=== PATIENT | female | born 1995 | race Caucasian/White ===

== ENCOUNTER 2019-12-08 15:12 | Observation (INO) | payer BC ==
[2019-12-08 15:47] VITALS: BP 113/60; PULSE 68
--- NOTE | 2019-12-08 17:01 | XRAY ---
Indication: well-being. Decreased heart tones. Two-dimensional OB ultrasound performed. Comparison: None. There is a single viable intrauterine in cephalic presentation. Normal four-chamber heart with heart rate 135 BPM. Anterior placenta without abruption/previa. BPD measures 7.66 cm corresponding to 30 weeks 5 days. HC measures 29.52 cm corresponding to 32 weeks 4 days. AC measures 27.37 cm corresponding to 31 weeks 3 days. FL measures 6.16 cm corresponding to 32 weeks 0 days. RAMON is 12.4 cm. Impression: Single viable intrauterine with mean gestational age 31 weeks 5 days. Expected date confinement is February 04, 2020.
== END 2019-12-08 16:35 | disposition home or self-care (01) ==
LOC: OB 15:12
PROVIDERS: ADMIT Family Medicine; ATTEND Family Medicine
DX: Z34.83 Encounter for supervision of other normal pregnancy, third trimester (principal)
CPT/HCPCS: 59025; 76816; G0378

== ENCOUNTER 2020-01-08 10:45 | Observation (INO) | payer BC ==
[2020-01-08 11:20] VITALS: BP 109/59; PULSE 72
--- NOTE | 2020-01-08 11:59 | XRAY ---
Indication: Abdomen pain. Two-dimensional OB ultrasound performed. Comparison: December 08, 2019. There is again a single viable intrauterine in cephalic presentation. heart rate 121 BPM. Again anterior placenta without abruption/previa. BPD measures 8.65 cm corresponding to 34 weeks 6 days. HC measures 31.57 cm corresponding to 35 weeks 3 days. AC measures 31.31 cm corresponding to 35 weeks 2 days. FL measures 6.83 cm corresponding to 35 weeks 1 day. RAMON is 11 cm. Impression: Again single viable intrauterine with mean gestational age 35 weeks 1 day. Normal progression of . No new/acute findings.
== END 2020-01-08 11:57 | disposition home or self-care (01) ==
LOC: OB 10:45
PROVIDERS: ADMIT Family Medicine; ATTEND Family Medicine
DX: O26.893 Other specified pregnancy related conditions, third trimester (principal); Z3A.35 35 weeks gestation of pregnancy; R10.9 Unspecified abdominal pain
CPT/HCPCS: 59025; 76816; G0378

== ENCOUNTER 2020-01-17 12:27 | Observation (INO) | payer BC ==
[2020-01-17 13:01] VITALS: BP 99/56; PULSE 75
== END 2020-01-17 13:20 | disposition home or self-care (01) ==
LOC: OB 12:27
PROVIDERS: ADMIT Family Medicine; ATTEND Family Medicine
DX: O36.8330 Maternal care for abnormalities of the fetal heart rate or rhythm, third trimester, not applicable or unspecified (principal); Z3A.36 36 weeks gestation of pregnancy
CPT/HCPCS: 59025; G0378

== ENCOUNTER 2020-01-31 12:45 | Observation (INO) | payer BC ==
[2020-01-31 14:01] VITALS: O2SAT 99
[2020-01-31 15:20] VITALS: BP 107/57; PULSE 67
--- NOTE | 2020-01-31 21:52 | XRAY ---
Exam: OB biophysical profile without nonstress from 01/31/2020. Comparison: None. Findings: A single live intrauterine fetus is seen in the cephalic lie. heart rate measured 121 bpm. Amniotic fluid index measured 12.04 cm, previously 11 cm on 01/08/2020. biophysical profile score was 2 points out of 2 points for breathing movements, gross body movements, tone, and amniotic fluid volume for a total of 8 points out of a maximum of 8 points. Impression: 1. Biophysical profile is 8 points out of a maximum of 8 points.
== END 2020-01-31 14:35 | disposition home or self-care (01) ==
LOC: OB 12:45
PROVIDERS: ADMIT Family Medicine; ATTEND Family Medicine
DX: Z34.83 Encounter for supervision of other normal pregnancy, third trimester (principal); Z3A.38 38 weeks gestation of pregnancy
CPT/HCPCS: 59025; 76819; G0378

== ENCOUNTER 2020-02-07 22:57 | Inpatient (IN) | payer BC ==
[2020-02-08] MEDS ORDERED: BRETHINE 1 MG/ML SQ PRN (00:37)
[2020-02-08] MEDS ORDERED: Zofran 4 MG/2 ML VIAL IV PRN (00:41)
[2020-02-08] MEDS ORDERED: XYLOCAINE 1% HCL 20 ML MDV IJ PRN (00:41)
[2020-02-08] MEDS ORDERED: PITOCIN 30 UNITS/ LR 500 ML 30 UNITS/500 ML IV.SOLN. IV SCH (01:00)
[2020-02-08 01:16] LABS: Amphetamine,Urine NEGATIVE (NEGATIVE); Barbiturate,Urine NEGATIVE (NEGATIVE); Benzodiazepine,Urine NEGATIVE (NEGATIVE); Cocaine,Urine NEGATIVE (NEGATIVE); Methadone,Urine NEGATIVE (NEGATIVE); Opiate,Urine NEGATIVE (NEGATIVE); PCP,Urine NEGATIVE (NEGATIVE); THC,Urine NEGATIVE (NEGATIVE)
[2020-02-08 01:25] LABS: Absolute Neutrophil Ct (ANC) 5.25 (1.4-6.9); BASOPHIL % 0.2 % (0.0-0.4); Basophil (Absolute #) 0.02 (0-0.4); Eosinophil % 1.2 % (0.00-5.0); Hematocrit 31.4 % (35-47); Hemoglobin 9.9 gm/dl (12.0-16.0); Lymphocyte (Absolute #) 2.42 (1.0-4.6); Lymphocytes % 28.9 % (24.0-44.0); Mean Cell Volume 81.1 fl (78-100); Mean Corpuscular Hemoglobin 25.6 pg (26-32); Mean Corpuscular Hgb Concent. 31.5 g/dl (32-36); Mean Platelet Volume 12.4 fl (7.5-11.0); Monocyte (Absolute #) 0.58 (0.0-1.3); Monocytes % 6.9 % (0.0-12.0); Neutrophil % 62.8 % (36.0-66.0); Platelet Count 179 K/mm3 (150-450); Red Blood Count 3.87 M/mm3 (4.1-5.4); Red Cell Distribution Width 15.1 % (11.5-14.0); White Blood Count 8.4 K/mm3 (4.0-10.5)
[2020-02-08 02:16] LABS: Appearance CLEAR (CLEAR); Bilirubin NEGATIVE (NEGATIVE); Blood NEGATIVE Ery/ul (0-5); Epithelial Cells RARE /HPF (FEW); Glucose 150 mg/dL (NEGATIVE); Ketones NEGATIVE (NEGATIVE); Leukocyte Esterase NEGATIVE (NEGATIVE); Mucus SLIGHT /HPF (NEGATIVE); Nitrite NEGATIVE (NEGATIVE); Protein,Urine Dip NEGATIVE (Negative); Specific Gravity 1.016 (1.005-1.025); Urobilinogen NEGATIVE mg/dL (0-1)
[2020-02-08 02:22] LABS: ABO TYPING B; Antibody Screen NEGATIVE (NEGATIVE); RH TYPING POSITIVE
[2020-02-08] MEDS: Lactated Ringers 1,000 ML IV SCH ×2 (14:20→23:20)
[2020-02-08] MEDS ORDERED: OB EPIDURAL NAROPIN/SUFENTANIL IN NACL EPIDURAL PRN (18:39)
[2020-02-08] MEDS ORDERED: Lactated Ringers 1,000 ML IV ONE (18:39)
[2020-02-08] MEDS ORDERED: Ephedrine Sulfate 50 MG/ML IV PRN (18:39)
[2020-02-08] MEDS ORDERED: XYLOCAINE 2%/Epi 1:200000 20ML VIAL MPF ONE (21:10)
[2020-02-08] MEDS ORDERED: Cervidil 10 MG VAG SCH (22:00)
[2020-02-09] MEDS ORDERED: SOD CITRATE-CITRIC ACID SOLN PO ONE (01:29)
[2020-02-09] MEDS ORDERED: Lactated Ringers 1,000 ML IV ONE (01:29)
[2020-02-09] MEDS ORDERED: Pepcid 20 MG VIAL IV SCH (01:30)
[2020-02-09] MEDS ORDERED: Reglan 10 MG/2 ML IV SCH (01:30)
[2020-02-09] MEDS ORDERED: CEFAZOLIN 2 GM-D5W BAG** 2 GM/50 ML ML IV ONE (01:44)
[2020-02-09] MEDS ORDERED: CEFAZOLIN 2 GM-D5W BAG** 2 GM/50 ML ML IV SCH (02:00)
[2020-02-09 02:15] LABS: INR 1.06 (0.8-3.0)
[2020-02-09 02:17] LABS: PTT 20.3 SECONDS (25.3-37.0)
[2020-02-09] MEDS ORDERED: Astramorph-Pf 5 MG/10 ML ONE (02:38)
[2020-02-09] MEDS ORDERED: TRANEXAMIC ACID 1000 MG/10 ML ONE (02:50)
[2020-02-09] MEDS ORDERED: Sodium Chloride 0.9% 100 ML IVPB 100 ML IV ONE (02:50)
[2020-02-09] MEDS ORDERED: Pitocin 10 UNITS/ML ONE (03:05)
[2020-02-09] MEDS ORDERED: Zofran 4 MG/2 ML VIAL ONE (03:05)
[2020-02-09] MEDS ORDERED: TORAdol 30 mg Injection ONE (03:54)
[2020-02-09] MEDS ORDERED: Anucort-HC SUPPOSITORY PR PRN (04:46)
[2020-02-09] MEDS ORDERED: NORCO 5/325 MG PO PRN (04:46)
[2020-02-09] MEDS ORDERED: CORTISONE 1% CREAM TP PRN (04:46)
[2020-02-09] MEDS ORDERED: DEMEROL 50 MG IV PRN (04:46)
[2020-02-09] MEDS ORDERED: Dulcolax 10 MG SUPP PR PRN (04:46)
[2020-02-09] MEDS ORDERED: Mylicon 80MG PO PRN (04:46)
[2020-02-09] MEDS ORDERED: TUCKS TP PRN (04:46)
[2020-02-09] MEDS ORDERED: Ambien 10 MG PO PRN (04:46)
[2020-02-09] MEDS ORDERED: Phenergan 25 MG INJ IM PRN (04:46)
[2020-02-09] MEDS ORDERED: Dextrose 5%-Lr IV Solution 1000 ML 1,000 ML IV SCH (05:00)
[2020-02-09 05:05] LABS: Appearance SLIGHTLY CLOUDY (CLEAR); Bilirubin NEGATIVE (NEGATIVE); Blood LARGE Ery/ul (0-5); Glucose NEGATIVE (NEGATIVE); Ketones SMALL (NEGATIVE); Leukocyte Esterase NEGATIVE (NEGATIVE); Mucus SLIGHT /HPF (NEGATIVE); Nitrite NEGATIVE (NEGATIVE); Protein,Urine Dip 30 (Negative); Specific Gravity 1.019 (1.005-1.025); Urobilinogen 2 mg/dL (0-1)
[2020-02-09 05:23] LABS: RBC >101 /HPF (0-2)
[2020-02-09] MEDS: FERREX 150 PO SCH (11:17)
[2020-02-09] MEDS: CEFAZOLIN 2 GM-D5W BAG** 2 GM/50 ML ML IV SCH ×2 (11:17→18:56)
[2020-02-09] MEDS: Colace 100 MG PO SCH ×2 (11:17→21:16)
[2020-02-09 12:00] LABS: Absolute Neutrophil Ct (ANC) 15.72 (1.4-6.9); BASOPHIL % 0.1 % (0.0-0.4); Basophil (Absolute #) 0.01 (0-0.4); Eosinophil (Absolute #) 0 (0-0.5); Hematocrit 29.4 % (35-47); Hemoglobin 9.2 gm/dl (12.0-16.0); Lymphocytes % 4.6 % (24.0-44.0); Mean Cell Volume 81.4 fl (78-100); Mean Corpuscular Hemoglobin 25.5 pg (26-32); Mean Corpuscular Hgb Concent. 31.3 g/dl (32-36); Mean Platelet Volume 12.5 fl (7.5-11.0); Monocytes % 4.1 % (0.0-12.0); Neutrophil % 91.2 % (36.0-66.0); Platelet Count 155 K/mm3 (150-450); Red Blood Count 3.61 M/mm3 (4.1-5.4); Red Cell Distribution Width 15.2 % (11.5-14.0); White Blood Count 17.2 K/mm3 (4.0-10.5)
[2020-02-09 13:46] LABS: ALKALINE PHOSPHATASE 97 U/L (38-126); ANION GAP 10.3 MEQ/L (5-15); BLOOD UREA NITROGEN 6 mg/dL (7-17); CHLORIDE 108 mmol/L (98-107); Calcium 8.9 mg/dL (8.4-10.2); Carbon Dioxide 18 mmol/L (22-30); Creatinine 1 0.69 mg/dL (0.52-1.04); EST GLOMERULAR FILTRATION RATE > 60.0 ML/MIN; Glucose 166 mg/dL (74-106); Potassium 4.1 mmol/L (3.5-5.1); SGOT/AST 22 U/L (14-36); SGPT/ALT 10 U/L (0-35); SODIUM 132 mmol/L (137-145); Total Protein 5.9 g/dL (6.3-8.2)
[2020-02-09] MEDS: MOTRIN 400 MG PO PRN ×2 (15:17→21:16)
[2020-02-09] MEDS ORDERED: CLARITIN 10 MG PO PRN (17:46)
[2020-02-09] MEDS ORDERED: Nubain 10 MG/ML IV PRN (17:46)
[2020-02-09] MEDS ORDERED: CLARITIN 10 MG ONE (17:51)
[2020-02-10] MEDS: MOTRIN 400 MG PO PRN ×3 (04:55→22:30)
[2020-02-10 05:47] VITALS: O2SAT 100
[2020-02-10 06:00] LABS: Absolute Neutrophil Ct (ANC) 8.53 (1.4-6.9); BASOPHIL % 0.2 % (0.0-0.4); Basophil (Absolute #) 0.02 (0-0.4); Eosinophil % 1.4 % (0.00-5.0); Eosinophil (Absolute #) 0.16 (0-0.5); Hematocrit 26.5 % (35-47); Hemoglobin 8.2 gm/dl (12.0-16.0); Lymphocyte (Absolute #) 2.15 (1.0-4.6); Lymphocytes % 18.7 % (24.0-44.0); Mean Cell Volume 82.6 fl (78-100); Mean Corpuscular Hemoglobin 25.5 pg (26-32); Mean Corpuscular Hgb Concent. 30.9 g/dl (32-36); Mean Platelet Volume 12.7 fl (7.5-11.0); Monocyte (Absolute #) 0.66 (0.0-1.3); Monocytes % 5.7 % (0.0-12.0); Platelet Count 119 K/mm3 (150-450); Red Blood Count 3.21 M/mm3 (4.1-5.4); Red Cell Distribution Width 15.3 % (11.5-14.0); White Blood Count 11.5 K/mm3 (4.0-10.5)
[2020-02-10] MEDS: TYLENOL EXTRA STRENGTH 500 MG PO PRN ×2 (06:00→18:06)
[2020-02-10 06:37] LABS: ALBUMIN 2.6 g/dL (3.5-5.0); ALKALINE PHOSPHATASE 82 U/L (38-126); ANION GAP 5.9 MEQ/L (5-15); BLOOD UREA NITROGEN 7 mg/dL (7-17); CHLORIDE 109 mmol/L (98-107); Calcium 8.7 mg/dL (8.4-10.2); Carbon Dioxide 24 mmol/L (22-30); Creatinine 1 0.76 mg/dL (0.52-1.04); EST GLOMERULAR FILTRATION RATE > 60.0 ML/MIN; Glucose 88 mg/dL (74-106); SGOT/AST 22 U/L (14-36); SGPT/ALT 9 U/L (0-35); SODIUM 135 mmol/L (137-145); Total Protein 5.3 g/dL (6.3-8.2)
[2020-02-10] MEDS: CEFAZOLIN 2 GM-D5W BAG** 2 GM/50 ML ML IV SCH (07:56)
--- NOTE | 2020-02-10 09:15 | PCM.NOTE ---
Date and Time: 02/10/20909 Subjective Assessment: POD 1 SP CSECTION PT RESTING IN BED AND DOING WELL. TOLERATING DIET AND AMBULATING VSS AFEBRILE ABD; SOFT INCISION C/D/INTACT UTERUS; FIRM LOCHIA; MILD HGB; 8.2 A/P SP CSECTION POD 1 DOING WELL ANTICIPATE DISCHARGE TOMORROW OBJECTIVE DATA Vital Signs: Vital Signs - 24 hr Temp Pulse Resp BP Pulse Ox 02/10/20 05:00 98.6 F 66 20 102/55 100 02/10/20 04:00 65 20 99 02/10/20 03:00 99 02/10/20 02:00 98 02/10/20 01:00 99 02/10/20 00:00 98.7 F 75 18 105/53 99 02/09/20 23:00 99 02/09/20 22:00 99 02/09/20 21:00 99 02/09/20 20:00 98.6 F 69 18 102/52 99 02/09/20 19:00 99 02/09/20 18:00 100 02/09/20 17:00 100 02/09/20 16:00 100 02/09/20 15:35 98.7 F 76 20 105/52 100 02/09/20 15:00 100 02/09/20 14:00 100 02/09/20 13:00 100 02/09/20 12:00 98 02/09/20 11:30 98.3 F 77 18 106/52 98 02/09/20 11:00 96 02/09/20 10:00 97 Pain Assessment - Last Documented Pain Intensity [Anterior/ 0 Posterior] Pain Intensity 2 Pain Scale Used 0-10 Pain Scale Intake and Output: Intake & Output 02/07/20 02/08/20 02/09/20 02/10/20 11:59 11:59 11:59 11:59 Intake Total 800 5452 1100 Output Total 1600 4840 Balance 800 5182 -3740 Weight 87.543 kg 87.543 kg Lab Results: Lab Results-Last 24 Hours 02/09/20 02/09/20 02/10/20 Range/Units 11:56 11:56 05:45 WBC 17.2 H 11.5 H (4.0-10.5) K/mm3 RBC 3.61 L 3.21 L (4.1-5.4) M/mm3 Hgb 9.2 L 8.2 L (12.0-16.0) gm/dl Hct 29.4 L 26.5 L (35-47) % MCV 81.4 82.6 (78-100) fl MCH 25.5 L 25.5 L (26-32) pg MCHC 31.3 L 30.9 L (32-36) g/dl RDW 15.2 H 15.3 H (11.5-14.0) % Plt Count 155 119 L (150-450) K/mm3 MPV 12.5 H 12.7 H (7.5-11.0) fl Gran % 91.2 H 74.0 H (36.0-66.0) % Eos # (Auto) 0 0.16 (0-0.5) Absolute Lymphs (auto) 0.80 L 2.15 (1.0-4.6) Absolute Monos (auto) 0.70 0.66 (0.0-1.3) Lymphocytes % 4.6 L 18.7 L (24.0-44.0) % Monocytes % 4.1 5.7 (0.0-12.0) % Eosinophils % 0.0 1.4 (0.00-5.0) % Basophils % 0.1 0.2 (0.0-0.4) % Absolute Granulocytes 15.72 H 8.53 H (1.4-6.9) Basophils # 0.01 0.02 (0-0.4) Sodium 132 L (137-145) mmol/L Potassium 4.1 (3.5-5.1) mmol/L Chloride 108 H (98-107) mmol/L Carbon Dioxide 18 L (22-30) mmol/L Anion Gap 10.3 (5-15) MEQ/L BUN 6 L (7-17) mg/dL Creatinine 0.69 (0.52-1.04) mg/dL Estimated GFR > 60.0 ML/MIN Glucose 166 H (74-106) mg/dL Calcium 8.9 (8.4-10.2) mg/dL Total Bilirubin 0.30 (0.2-1.3) mg/dL AST 22 (14-36) U/L ALT 10 (0-35) U/L Alkaline Phosphatase 97 (38-126) U/L Serum Total Protein 5.9 L (6.3-8.2) g/dL Albumin 3.0 L (3.5-5.0) g/dL 02/10/20 Range/Units 05:45 WBC (4.0-10.5) K/mm3 RBC (4.1-5.4) M/mm3 Hgb (12.0-16.0) gm/dl Hct (35-47) % MCV (78-100) fl MCH (26-32) pg MCHC (32-36) g/dl RDW (11.5-14.0) % Plt Count (150-450) K/mm3 MPV (7.5-11.0) fl Gran % (36.0-66.0) % Eos # (Auto) (0-0.5) Absolute Lymphs (auto) (1.0-4.6) Absolute Monos (auto) (0.0-1.3) Lymphocytes % (24.0-44.0) % Monocytes % (0.0-12.0) % Eosinophils % (0.00-5.0) % Basophils % (0.0-0.4) % Absolute Granulocytes (1.4-6.9) Basophils # (0-0.4) Sodium 135 L (137-145) mmol/L Potassium 4.0 (3.5-5.1) mmol/L Chloride 109 H (98-107) mmol/L Carbon Dioxide 24 (22-30) mmol/L Anion Gap 5.9 (5-15) MEQ/L BUN 7 (7-17) mg/dL Creatinine 0.76 (0.52-1.04) mg/dL Estimated GFR > 60.0 ML/MIN Glucose 88 (74-106) mg/dL Calcium 8.7 (8.4-10.2) mg/dL Total Bilirubin 0.20 (0.2-1.3) mg/dL AST 22 (14-36) U/L ALT 9 (0-35) U/L Alkaline Phosphatase 82 (38-126) U/L Serum Total Protein 5.3 L (6.3-8.2) g/dL Albumin 2.6 L (3.5-5.0) g/dL
[2020-02-10] MEDS: Colace 100 MG PO SCH ×2 (10:53→22:31)
[2020-02-10] MEDS: FERREX 150 PO SCH (10:53)
[2020-02-11] MEDS: TYLENOL EXTRA STRENGTH 500 MG PO PRN (02:31)
--- NOTE | 2020-02-11 10:00 | PCM.NOTE ---
Date and Time: 02/11/2057 Subjective Assessment: POD 2 SP CSECTION PT RESTING IN BED AND DOING WELL. AMBULATING AND TOLERATING DIET VSS AFEBRILE ABD; SOFT, INCISION C/D/INTACT UTERUS; FIRM LOCHIA; MILD A/P SP CSECTION POD 2 ANEMIA PT DESIRES TO BE DISCHARGED HOME TODAY SHOULD FU IN OFFICE IN 2 WKS FOR INCISION CHECK. WILL DISCHARGE HOME ON FESO4 BID DAILY OBJECTIVE DATA Vital Signs: Vital Signs - 24 hr Temp Pulse Resp BP Pulse Ox 02/11/20 08:45 97.3 F 74 18 124/60 02/11/20 03:00 98.8 F 57 L 18 118/60 100 02/10/20 19:00 98.3 F 72 20 112/60 100 02/10/20 15:30 98.3 F 80 18 107/53 Pain Assessment - Last Documented Pain Intensity [Anterior/ 2 Posterior] Pain Intensity 2 Pain Scale Used 0-10 Pain Scale Intake and Output: Intake & Output 02/08/20 02/09/20 02/10/20 02/11/20 11:59 11:59 11:59 11:59 Intake Total 800 5452 1100 1840 Output Total 1600 4840 Balance 800 2129 -4408 1840 Weight 87.543 kg 87.543 kg
--- NOTE | 2020-02-11 10:02 | PCM.DS ---
Discharge Summary Date of Admission: 02/08/20 18:12 Admitting Physician: LILLIE KANG Consults: Consults on Case 02/09/20 01:29 Notify Anesthesia Provider ROUTINE 02/09/20 05:21 Notify Physician ROUTINE 02/09/20 08:00 Notify Physician OF ADMISSION 02/09/20 17:47 Notify Anesthesia Provider PRN Primary Care Provider: LILLIE KANG Allergies Allergies No Known Drug Allergies Allergy (Verified 01/17/20 12:47) Hospital Summary - Hospital Course Hospital Course: PT WAS ADMITED FOR INDUCTION ON FEB 07 AND SUBSEQUENTLY REACHED TO COMPLETE DILITATION HOWEVER WAS NOTED HAVING ARREST OF DESCENT AFTER APPROXIMATELY 2-3 HRS OF PUSHING. PT THEREFORE UNDERWENT PRIMARY CSECTION ON FEB 08 AND UNDERWENT PROCEDURE WITHOUT COMPLICATION. DURING POSTOP PERIOD PT DID VERY WELL AND WAS ABLE TO AMBULATE AND TOLERATE. PT AT THIS TIME STABLE FOR DC AND WAS ADVISED TO FU IN OFFICE IN 2 WKS FOR INCISION CHECK. ALL QUESTIONS ANSWERED TO HER SATISFACTION. PT WAS GIVEN NORCO FOR PAIN MANAGEMENT AND FESO4 FOR ANEMIA. - Vitals & Intake/Output Vital Signs: Vital Signs Temperature 97.3 F 02/11/20 08:45 Pulse Rate 74 02/11/20 08:45 Respiratory Rate 18 02/11/20 08:45 Blood Pressure 124/60 02/11/20 08:45 O2 Sat by Pulse Oximetry 100 02/11/20 03:00 Intake & Output: Intake & Output 02/08/20 02/09/20 02/10/20 02/11/20 11:59 11:59 11:59 11:59 Intake Total 800 5452 1100 1840 Output Total 1600 4840 Balance 800 3852 -3740 1840 Weight 87.543 kg 87.543 kg - Lab Result Diagrams: 02/10/20 05:45 02/10/20 05:45 Micro Results-Entire Visit: Microbiology 02/09/20 02:53 Urine Culture - Final Urine, Void NO GROWTH - Discharge Disposition: Home, Self-Care Condition: Stable Prescriptions: No Action Vits W-Ca,Fe,FA(<1Mg) [] 1 tab PO DAILY Additional Instructions: Call Dr Kang and Dr Carias's office to schedule your 1 week follow up appointment. Follow up with: LILLIE AKNG [Primary Care Provider] - 1 Week FREDDIE CARIAS DO [ACTIVE STAFF] - 1 Week Forms: OB Discharge Instructions
--- NOTE | 2020-02-11 10:03 | PCM.DCORD ---
- Discharge Discharge Date: 02/11/20 Disposition: Home, Self-Care Condition: Stable Prescriptions: No Action Vits W-Ca,Fe,FA(<1Mg) [] 1 tab PO DAILY Additional Instructions: Call Dr Kang and Dr Carias's office to schedule your 1 week follow up appointment. Follow up with: LILLIE KANG [Primary Care Provider] - 1 Week FREDDIE CARIAS DO [ACTIVE STAFF] - Call for Appointment (SHOULD FU IN OFFICE IN 2 WKS FOR INCISION CHECK) Forms: OB Discharge Instructions
[2020-02-11 13:40] VITALS: BP 131/62; PULSE 80
--- NOTE | 2020-02-12 09:38 | OP ---
SURGERY DATE/TIME: 02/09/2020 0239 PREOPERATIVE DIAGNOSIS: Intrauterine at 39 weeks and 5 days gestation with arrest of descent. POSTOPERATIVE DIAGNOSIS: Intrauterine at 39 weeks and 5 days gestation with arrest of descent with truncal cord noted. PROCEDURE: Primary section, low flap transverse uterine incision, Pfannenstiel skin incision. SURGEON: Abdulkadir Molina D.O. ASSISTANTS: Dr. Haleigh Kang and Ann Perry surgical processor. ANESTHESIA: Epidural. ESTIMATED BLOOD LOSS: 800 cc. COMPLICATIONS: None. INDICATIONS: The risks, benefits, indications and alternatives of the procedure were reviewed with the patient prior to procedure. The patient understood the risk of infection, bleeding, bowel injury, bladder injury, ureteral injury, incisional hernia, pelvic infection and thromboembolic disorder that could be associated with the procedure however desires to have this surgery as a possible need to alleviate her current medical condition. DESCRIPTION OF PROCEDURE AND FINDINGS: At this point the patient is taken to the operating room where her epidural anesthesia was found to adequate. She was then prepared and draped in normal sterile fashion in the dorsal supine position with a leftward tilt. A Pfannenstiel skin incision is made with a scalpel and carried through to the underlying layer of the fascia with a Bovie. The fascia was then incised in the midline and the incision extended laterally with Nunes scissors. The superior aspect of the fascial incision was then grasped Renetta clamps elevated and the underlying rectus muscles dissected off bluntly. Attention is then turned to the inferior aspect of this incision which in similar fashion was grasped, tented up with Renetta clamps and the rectus muscles and dissected off bluntly. The rectus muscles were then at the midline and the peritoneum identified, tented up and entered sharply with Metzenbaum scissors. The peritoneum incision was then extended superiorly and inferiorly with good visualization of the bladder. The bladder blade was then inserted and the vesicouterine peritoneum identified, grasped with a pickup and entered sharply with Metzenbaum scissors. This incision was then extended laterally and bladder flap created digitally. The bladder blade was then re-inserted in the lower uterine segment incised in transverse fashion with a scalpel. The uterine incision was then extended laterally with bandage scissors. The bladder blade was then removed. The infant's head was delivered atraumatically. It was noted a truncal cord which was reduced upon delivery. The nose and mouth were suctioned with bulb suction and the cord clamped and cut. The was then handed off to the awaiting nurses. From this point the placenta was then removed manually and the uterus exteriorized and cleared of all clots and debris. The uterine incision was repaired with 1-0 chromic running locked fashion. A second layer of the same suture was used to obtain excellent hemostasis. The uterus is then returned to the abdomen. The gutters were cleared of all clots. The peritoneum closed in interrupted fashion using 2-0 chromic suture. The fascia was reapproximated with 0 chromic in running fashion. The subcutaneous layer closed with interrupted sutures of 3-0 plain and the skin was closed with absorbable danita called INSORB. The patient tolerated the procedure well. Sponge, lap, needle and instrument counts were correct x2. The patient was then taken to the recovery room in stable condition. The patient delivered a live baby boy at 0303 hours, weight 8 pounds 2 ounces and 's were 9 at 1 minute and 9 at 5 minutes.
== END 2020-02-11 11:53 | disposition home or self-care (01) | DRG 788 ==
LOC: OB 22:57 → UNDOADMOB 22:57 → OB 02-08 00:01 → OBSVTOIN 02-08 18:12 → OB 02-08 18:13 → MED SURG 02-08 18:13 → OB 02-08 18:14
PROVIDERS: ADMIT Family Medicine; ATTEND Family Medicine
PROC: 10D00Z1 Extraction of Products of Conception, Low, Open Approach (ICD-10-PCS; principal; 2020-02-09)
DX: O33.9 Maternal care for disproportion, unspecified (principal); O69.82X0 Labor and delivery complicated by other cord entanglement, without compression, not applicable or unspecified; Z3A.39 39 weeks gestation of pregnancy; Z37.0 Single live birth
CPT/HCPCS: 36415; 64488; 76937; 76942; 80053; 80307; 81001; 85025; 85610; 85730; 86850; 86900; 86901; 87086; G0378; J0690; J1885; J2274; J2405; J2590; J2795; A9270-GY